=== PATIENT | female | born 1980 | race Caucasian/White ===

== ENCOUNTER 2024-08-20 13:37 | Emergency (ER) | payer OTHER ==
[~2024-08-20] VITALS: Ht 167.6 cm; Wt 50.8 kg
[2024-08-20 14:19] LABS: Hematocrit 37.1 % (33.0-51.0); Hemoglobin 12.6 g/dL (11.5-16.0); Mean Corpuscular HGB 30.4 pg (26.0-34.0); Mean Corpuscular Volume 89 fL (80-100); Mean Platelet Volume 9.6 fL (9.1-12.4); Platelet Count 212 K/mm3 (150-400); RDW Coefficient Variation 13.7 % (11.7-14.2); RDW Standard Deviation 45.1 fL (35.1-46.3); Red Blood Cell Count 4.15 M/mm3 (3.80-5.20); White Blood Cell Count 3.81 K/mm3 (4.00-11.30)
[2024-08-20 14:30] LABS: Source, Urine Clean Catch
[2024-08-20 14:34] LABS: Appearance, Urine Clear (Clear); Bilirubin, Urine Neg (Neg); Blood, Urine 1+ (Neg); Color, Urine Yellow (P-Yellow); Glucose Qualitative, Urine Neg (Neg); Ketones, Urine 2+ (Neg); Leukocyte Esterase, Urine Neg (Neg); Nitrite, Urine Neg (Neg); Protein, Urine Neg (Neg); Urobilinogen, Urine NORM (Normal)
[2024-08-20 14:40] LABS: Albumin, Blood 4.2 g/dL (3.4-5.0); Albumin/Globulin Ratio 1.2 (0.8-1.8); Bilirubin, Total 0.3 mg/dL (0.1-1.0); Bun/Creatinine Ratio 13.1 (12.0-20.0); Calcium, Blood 9.2 mg/dL (8.5-10.1); Creatinine, Blood 0.76 mg/dL (0.40-1.00); Globulin, Blood 3.4 g/dL (2.2-4.0); Potassium, Blood 3.9 mmol/L (3.5-5.5); Total Protein, Blood 7.6 g/dL (6.4-8.2)
[2024-08-20 14:50] LABS: BASOPHILS PERCENT MAN 0 % (0-2); EOSINOPHILS ABSOLUTE MAN 0.03 K/mm3 (0.00-0.68); EOSINOPHILS PERCENT MAN 1 % (0-6); LYMPHOCYTES ABSOLUTE MAN 1.75 K/mm3 (0.84-5.20); LYMPHOCYTES PERCENT MAN 46 % (21-46); MONOCYTES ABSOLUTE MAN 0.41 K/mm3 (0.16-1.47); MONOCYTES PERCENT MAN 11 % (4-13); SEG NEUTROPHILS PERCENT MAN 42 % (41-73); TOTAL CELLS COUNTED 100
[2024-08-20 14:58] LABS: Bacteria Many /hpf; Squamous Epithelial Cells Few /hpf (Few)
[2024-08-20] MEDS ORDERED: Cephalexin Monohydrate 500 MG Cap PO ONE (15:20)
[2024-08-20] MEDS ORDERED: buprenorphine HCL 2 MG TAB.SUBL SL ONE ×2 (15:25→16:15)
[2024-08-20] MEDS ORDERED: SUBOXONE 8 MG-1 EACH SL (17:23)
[2024-08-20] MEDS ORDERED: CEPH500 PO (18:00)
== END 2024-08-20 17:46 | disposition home or self-care (01) ==
LOC: ER 13:37
PROVIDERS: Student in an Organized Health Care Education/Training Program
DX: R10.9 Unspecified abdominal pain (principal); G89.29 Other chronic pain; F11.20 Opioid dependence, uncomplicated; N39.0 Urinary tract infection, site not specified
CPT/HCPCS: 76770; 80053; 81001; 81025; 85025; 87086; 99284-25; A9270

== ENCOUNTER 2025-04-07 18:14 | Emergency (ER) | payer OTHER ==
[~2025-04-07] VITALS: Ht 157.5 cm; Wt 61.2 kg
[~2025-04-07 18:14] MED LIST: CEPH500 PO; SUBOXONE 8 MG-1 EACH SL
[2025-04-07 19:14] LABS: BASOPHILS ABSOLUTE AUTO 0.04 K/mm3 (0.00-0.23); BASOPHILS PERCENT AUTO 1 % (0-2); EOSINOPHILS ABSOLUTE AUTO 0.02 K/mm3 (0.00-0.68); EOSINOPHILS PERCENT AUTO 0 % (0-6); Hematocrit 34.7 % (33.0-51.0); Hemoglobin 11.9 g/dL (11.5-16.0); IMMATURE GRAN ABSOLUTE AUTO 0.02 K/mm3 (0.00-0.10); IMMATURE GRAN PERCENT AUTO 0 % (0-1); LYMPHOCYTES ABSOLUTE AUTO 1.63 K/mm3 (0.84-5.20); LYMPHOCYTES PERCENT AUTO 20 % (21-46); MONOCYTES ABSOLUTE AUTO 0.75 K/mm3 (0.16-1.47); MONOCYTES PERCENT AUTO 9 % (4-13); Mean Corpuscular HGB Conc 34.3 g/dL (31.5-36.5); Mean Corpuscular Volume 88 fL (80-100); NEUTROPHILS ABSOLUTE AUTO 5.64 K/mm3 (1.96-9.15); NEUTROPHILS PERCENT AUTO 70 % (41-73); NRBC ABSOLUTE 0.00 K/mm3 (0.00-0.02); NRBC Auto 0.0 /100 WBC (0.0-0.2); Platelet Count 327 K/mm3 (150-400); RDW Coefficient Variation 12.3 % (11.7-14.2); RDW Standard Deviation 39.5 fL (35.1-46.3)
[2025-04-07 19:38] LABS: Ethanol (Alcohol), Blood, Med <3 mg/dL; Salicylate 5.2 mg/dL (2.8-20.0)
[2025-04-07 19:46] LABS: Source, Urine Clean Catch
[2025-04-07 19:52] LABS: Bilirubin, Urine Neg (Neg); Glucose Qualitative, Urine Neg (Neg); Ketones, Urine Neg (Neg); Leukocyte Esterase, Urine 1+ (Neg); Protein, Urine Neg (Neg); Specific Gravity, Urine 1.010 (1.003-1.022); Urobilinogen, Urine NORM (Normal)
[2025-04-07 19:58] LABS: Color, Urine Pale Yellow (P-Yellow)
[2025-04-07 19:59] LABS: Red Blood Cells, Urine 0-2 /hpf (0-2)
[2025-04-07 20:05] LABS: Alanine Aminotransfer (ALT/SGP 21 U/L (12-78); Albumin, Blood 4.0 g/dL (3.4-5.0); Albumin/Globulin Ratio 1.1 (0.8-1.8); Anion Gap 6 mmol/L (3-11); Aspartate Aminotrans (AST/SGOT 22 U/L (12-37); Bilirubin, Total 0.3 mg/dL (0.1-1.0); Blood Urea Nitrogen 8 mg/dL (8-24); CO2, Blood 24 mmol/L (21-32); Calcium, Blood 9.1 mg/dL (8.5-10.1); Chloride, Blood 108 mmol/L (98-108); Creatinine, Blood 0.71 mg/dL (0.40-1.00); Globulin, Blood 3.5 g/dL (2.2-4.0); Glucose, Blood 107 mg/dL (70-99); Potassium, Blood 3.7 mmol/L (3.5-5.5); Sodium, Blood 134 mmol/L (136-145); Total Protein, Blood 7.5 g/dL (6.4-8.2)
[2025-04-07 20:06] LABS: Acetaminophen, Random <2.0 ug/mL (10.0-30.0)
[2025-04-07 20:06] LABS: U Amphetamine Screen Not Detected; U Barbituate Screen Not Detected; U Benzodiazapine Screen Not Detected; U Buprenorphine Screen Not Detected; U Cannabinoids Screen DETECTED; U Cocaine Screen Not Detected; U Methadone Screen Not Detected; U Methamphetamine Screen Not Detected; U Opiates Screen DETECTED; U Oxycodone Screen Not Detected; U Phencyclidine Screen Not Detected
[2025-04-08] MEDS ORDERED: HYDROCODONE-AC1 EAC7 PO (01:54)
[2025-04-08] MEDS ORDERED: PROAIR RESPICL90 MCG IH (01:54)
[2025-04-08] MEDS ORDERED: MELATONIN5 M1 PO (04:12)
[2025-04-08] MEDS ORDERED: DIAZ2 PO (04:12)
== END 2025-04-08 05:00 | disposition home or self-care (01) ==
LOC: ER 18:14
PROVIDERS: Physician Assistant
DX: G47.00 Insomnia, unspecified (principal); E86.0 Dehydration; R41.82 Altered mental status, unspecified; Z91.040 Latex allergy status; Z79.899 Other long term (current) drug therapy
CPT/HCPCS: 70450; 80053; 80320; 81001; 81025; 84436; 85025; 87086; 93005; 93010; 99285-25; A9270; G0480